=== PATIENT | female | born 1985 | race Caucasian/White ===

== ENCOUNTER 2018-04-20 10:20 | Observation (INO) ==
[2018-04-20 11:17] LABS: Bilirubin,Urine Negative (Negative); Blood,Urine Negative (Negative); Clarity,Urine Clear (Clear); Color,Urine Yellow (Yellow); Glucose,Urine (UA) Normal (Normal); Ketones,Urine Negative (Negative); Leukocyte Esterase,Urine Negative (Negative); Nitrite,Urine Negative (Negative); Protein,Urine Negative (Neg-Trace); Specific Gravity,Urine < 1.005 (1.010-1.025); Urobilinogen,Urine Normal (Normal)
[2018-04-20 11:23] LABS: Amphetamine Screen,Urine Negative ng/mL (Cutoff=1000); Barbiturate Screen,Urine Negative ng/mL (Cutoff=200); Benzodiazepines Screen,Urine Negative ng/mL (Cutoff=200); Cannabinoid Screen,Urine Negative ng/mL (Cutoff = 50); Cocaine Screen,Urine Negative ng/mL (Cutoff= 300); Opiate Screen,Urine Negative ng/mL (Cutoff=300); Phencyclidine Screen,Urine Negative ng/mL (Cutoff=25)
[2018-04-20 13:22] LABS: Trichomonas DNA Not Detected (Not Detect)
[2018-04-20 13:23] LABS: Candida DNA Not Detected (Not Detect); Gardnerella DNA Not Detected (Not Detect)
--- NOTE | 2018-04-20 13:59 | Discharge Summary ---
Date of Encounter: 04/20/18 Time of Encounter: 13:58 - Discharge Diagnosis (1) 23 weeks gestation of Priority: Primary Status: Acute Comments: Admitted to observation for possible fluid leakage Patient has follow-up appointment with Dr. Jolley next week heart tones 140 bpm per Doppler (2) Vaginal discharge during in second trimester Priority: Secondary Status: Acute Comments: Sterile speculum exam revealed moderate amount of white watery discharge in the vagina. Fern was negative, pseudohyphae noted in one area on slide. Dr. Cervantes reviewed slide and agreed. No ferning noted per Dr. Cervantes. Vaginosis panel returned negative. - Discharge Medications Home Medications: Cetirizine HCl [Zyrtec] 10 mg PO DAILY 04/20/18 [History] Fluticasone/Salmeterol [Advair 100-50 Diskus] 1 each IH DAILY 04/20/18 [History] Pnv Plus Multivit Tab 1 tab PO DAILY 04/20/18 [History] Allergies/Adverse Reactions: Allergy/AdvReac Type Severity Reaction Status Date / Time No Known Allergies Allergy Verified 04/20/18 10:47 Data Procedures and tests throughout hospitalization: Laboratory Tests 04/20/18 04/20/18 04/20/18 10:59 10:59 12:25 Urine Color Yellow Urine Clarity Clear Urine pH 7.0 Ur Specific [place] < 1.005 L Urine Protein Negative Urine Glucose (UA) Normal Urine Ketones Negative Urine Blood Negative Urine Nitrite Negative Urine Bilirubin Negative Urine Urobilinogen Normal Ur Leukocyte Esterase Negative Ur Culture Indicated? NO Urine Opiates Screen Negative Ur Barbiturates Screen Negative Ur Phencyclidine Scrn Negative Ur Amphetamines Screen Negative U Benzodiazepines Scrn Negative Urine Cocaine Screen Negative U Marijuana (THC) Screen Negative Ur Drug Screen Interp See Below Alexandra species DNA Not Detected Gardnerella DNA Probe Not Detected Trichomonas DNA Probe Not Detected Labs on day of discharge: Labs from last 24 hours 04/20/18 04/20/18 04/20/18 12:25 10:59 10:59 Urine Color Yellow Urine Clarity Clear Urine pH 7.0 Ur Specific [place] < 1.005 L Urine Protein Negative Urine Glucose (UA) Normal Urine Ketones Negative Urine Blood Negative Urine Nitrite Negative Urine Bilirubin Negative Urine Urobilinogen Normal Ur Leukocyte Esterase Negative Ur Culture Indicated? NO Urine Opiates Screen Negative Ur Barbiturates Screen Negative Ur Phencyclidine Scrn Negative Ur Amphetamines Screen Negative U Benzodiazepines Scrn Negative Urine Cocaine Screen Negative U Marijuana (THC) Screen Negative Ur Drug Screen Interp See Below Alexandra species DNA Not Detected Gardnerella DNA Probe Not Detected Trichomonas DNA Probe Not Detected Date of admission: 04/20/18 10:07 Primary care physician: Stephen Mendoza Discharging clinician: Jessica Braxton Anticipated date of discharge: 04/20/18 - Patient Status Disposition: Home, Self-Care Condition: Good Functional capacity at discharge: independent ambulation Overall status at discharge: patient is back to baseline - Discharge Instructions Follow Up With: Stephen Mendoza DO [Primary Care Provider] - Rosario Jolley DO [Partnered Physician] - - Diet and Activity Activity: resume usual activities as tolerated Diet: regular diet Hospital Course [employer] Hospital course: Yulia is a who presents today at 23 weeks and 4 days with complaint of vaginal leakage. She states she had intercourse yesterday morning and noticed leakage yesterday afternoon. Sterile speculum exam reveals moderate amount of white watery discharge. Vaginosis panel collected and returned negative. Fern and nitrazine paper both negative. heart rate 140 per Doppler and appropriate for gestational age. Patient to be discharged home and follow-up as scheduled with Dr. Jolley next week. Time Attestation: Total time spent providing and/or coordinating discharge services: Time Spent: Less than 30 minutes Exam - Constitutional General appearance IM: A&O X 3, no acute distress, answers questions appropriately - Respiratory Respiratory exam: Present: CTAB - Cardiovascular Cardiovascular exam IM: Present: RRR, +S1, +S2 - GI/Abdominal GI/Abdominal exam IM: normal bowel sounds - Rectal Rectal exam: deferred - Extremities Exam Extremities exam IM: Present: full ROM, normal capillary refill, normal inspection, pedal edema - Neurological Exam Neurological exam: alert, normal gait, oriented X3 - VTE Reasons for not Prescribing Prophylaxis: Treatment not Indicated - Low risk for VTE
== END 2018-04-20 14:06 | disposition home or self-care (01) ==
LOC: 1NENULAB
PROVIDERS: ADMIT Registered Nurse; ATTEND Registered Nurse